=== PATIENT | male | born 1990 | race Caucasian/White ===

== ENCOUNTER 2022-01-20 19:11 | Inpatient (IN) | payer MEDICAID, SELFPAY ==
[2022-01-20 19:13] VITALS: BP 115/80; PULSE 100; RESP 18; TEMP 36.6; O2SAT 98; BMI 29.2
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
[2022-01-20 19:34] LABS: Basophils # 0.1 10^3/uL (0.0-0.1); Basophils % 0.5 %; Eosinophils # 0.1 10^3/uL (0.0-0.8); Eosinophils % 0.9 %; Hemoglobin 14.7 g/dL (11.7-16.6); Lymphocytes # 3.8 10^3/uL (0.8-4.8); Lymphocytes % 38.3 %; Mean Corpuscular HGB Conc 32.7 g/dL (30.0-36.0); Mean Corpuscular Hemoglobin 30.1 pg (28.0-34.0); Mean Corpuscular Volume 92.2 fl (80-94); Mean Platelet Volume 11.9 fL (7.4-10.4); Monocytes # 0.8 10^3/uL (0.2-0.9); Monocytes % 8.2 %; Neutrophils # 5.19 10^3/uL (1.8-7.7); Neutrophils % 51.8 %; Nucleated Red Blood Cells % 0 %; Platelet Count 220 10^3/cmm (130-400); Red Blood Count 4.88 10^6/uL (4.1-5.3); Red Cell Distribution Width 14.1 % (12.1-15.1)
[2022-01-20 19:46] LABS: Amphetamines Screen Urine Positive (Negative); Barbiturates Screen Urine Negative (Negative); Benzodiazepines Screen Urine Negative (Negative); Cocaine Screen Urine Negative (Negative); Opiate Screen Urine Negative (Negative); PCP Screen Urine Negative (Negative); THC Screen Urine Negative (Negative)
[2022-01-20 19:51] LABS: Alanine Aminotransferase 43 U/L (0-41); Albumin Level 4.5 g/dL (3.5-5.2); Alkaline Phosphatase 67 IU/L (40-130); Anion Gap 18.9 (5-19); Aspartate Amino Transferase 35 U/L (0-40); Blood Urea Nitrogen 12 mg/dL (6-20); Calcium 8.6 mg/dL (8.5-10.5); Carbon Dioxide 22 mmol/L (22-29); Chloride 100 mmol/L (98-107); Globulin 2.9 g/dL (1.3-4.6); Glomerular Filtration Rate 114.3 mL/min (90-130); Glucose 98 mg/dL (65-115); Lipase 62 U/L (13-60); Osmolality Calculated 284 mOsm/kg (285-295); Potassium 3.9 mmol/L (3.5-5.1); Sodium 137 mmol/L (136-145); Total Bilirubin 0.2 mg/dL (0.15-1.2); Total Protein 7.4 g/dL (6.6-8.7)
[2022-01-20 19:52] LABS: Acetaminophen < 5.0 ug/mL (10-30); Salicylate < 0.3 mg/dL (3-10)
[2022-01-20 20:39] VITALS: BP 127/76; PULSE 111; RESP 17; TEMP 36.8; O2SAT 97
[2022-01-20 20:55] VITALS: BP 127/76; PULSE 111; RESP 17; TEMP 36.8; O2SAT 97
[2022-01-20] MEDS: mirtazapine 30 mg Tablet PO (21:51)
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
[2022-01-21 06:00] VITALS: BP 154/95; PULSE 88; RESP 17; TEMP 36.6; O2SAT 99
[2022-01-21] MEDS: OLANZapine 5 mg ODT PO ×2 (08:12→12:17)
[2022-01-21] MEDS: carvedilol 6.25 mg Tablet 3.125 MG PO ×2 (08:12→17:45)
[2022-01-21] MEDS: OXcarbazepine 300 mg Tablet 450 MG PO ×2 (08:12→17:44)
[2022-01-21] MEDS: nicotine 2 mg Gum BUCCAL ×2 (09:28→12:17)
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
[2022-01-21] MEDS: haloperidol 5 mg Tablet PO (13:00)
--- NOTE | 2022-01-21 13:02 | PC.NURSE ---
Haldol 5mg po given for increased agitation as evidenced by patient yelling at other patients, fist clenched pacing and yelling at this RN regarding clarification of coumadin order and physician. Patient states he has a mechanical aortic valve replacement.
[2022-01-21] MEDS: haloperidol inj 5 mg/mL INJ 1 mL IM (13:39)
[2022-01-21] MEDS: diphenhydrAMINE 50 mg/mL SDV 1mL IM (13:40)
[2022-01-21] MEDS: LORazepam 2 mg/mL INJ 1 mL IM (13:40)
--- NOTE | 2022-01-21 13:55 | PC.NURSE ---
Patient with increased agitation and anxiety Staff increased presence with silent observation and verbal descalation. Patient request for anxiety medication to be given. Patient given Ativan 2 mg IM, Haldol 5 mg IM given in right deltoid and Benadryl 25 mg IM given in left deltoid. Patient tolerated well. Patient moved to room 170.
--- NOTE | 2022-01-21 17:43 | PC.NURSE ---
Earlier this shift attempted to verify warfarin dose with [facility] in [place]. Last Warfarin was filled in May 2021. Dr. HARRELL was the prescribing physician. Called [facility] and [facility] with no record of Dr. HARRELL. Patient reports that he has a mechanical aortic valve. Patient became upset with this nurse when attempting to verify pharmacy and physician. Pharmacy and physician aware.
[2022-01-21] MEDS: lurasidone 20 mg Tablet 40 MG PO (17:44)
[2022-01-21 17:59] LABS: INR 1.04 (0.8-1.2)
[2022-01-21] MEDS: warfarin 10 mg Tablet PO (18:32)
[2022-01-21] MEDS: mirtazapine 30 mg Tablet PO (21:18)
[2022-01-21 22:00] VITALS: RESP 16
[2022-01-22 06:00] VITALS: BP 126/84; PULSE 88; RESP 18; TEMP 36.4; O2SAT 99
[2022-01-22] MEDS: OXcarbazepine 300 mg Tablet 450 MG PO ×2 (09:03→21:18)
[2022-01-22] MEDS: carvedilol 6.25 mg Tablet 3.125 MG PO ×2 (09:03→21:18)
[2022-01-22] MEDS: nicotine 2 mg Gum BUCCAL (09:05)
[2022-01-22] MEDS: haloperidol inj 5 mg/mL INJ 1 mL IM (09:52)
[2022-01-22] MEDS: LORazepam 2 mg/mL INJ 1 mL IM (09:52)
[2022-01-22] MEDS: diphenhydrAMINE 50 mg/mL SDV 1mL IM (09:52)
--- NOTE | 2022-01-22 09:55 | PC.NURSE ---
PRN BENADRYL, ATIVAN, HALDOL BENADRYL 50 MG GIVEN IM IN RIGHT DELTOID PER PT C/O AGITATION. ATIVAN 2 MG GIVEN IM WITH HALDOL 5 MG IM IN LEFT DELTOID PER PT C/O AGITATION/ANXIETY. PT UP PACING UNIT, YELLING AND CURSING ABOUT NOT BEING ABLE TO DISCHARGE TODAY. PT TOOK IM MEDICATIONS WITHOUT INCIDENT.
[2022-01-22 11:11] LABS: INR 1.07 (0.8-1.2)
--- NOTE | 2022-01-22 13:56 | W.PM.NPUPNS ---
Subjective NPU Subjective: He was quite loud and belligerent this morning. He was yelling about being a voluntary patient and insisting on leaving. He required B-52 injection. He was able to calm down after that and go to sleep. Mental Status Exam MSE Comments: This is a 31-year-old overweight male who appears his approximately stated age and is in no acute distress at the beginning of the conversation.? He was seen in the hallway and in his room as he was yelling and insisting on leaving immediately. He was threatening. psychomotor activity was increased Speech is at a regular rate and rhythm, normal volume, good articulation, not pressured initially.? At the end he had some pressured speech and increased volume and rate. Alert, oriented X3 Attention and concentration appear to be normal. Memory is intact Mood is irritated.? Affect is quite angry Thought process is logical and goal-directed. Thought content:? Denies auditory and visual hallucinations.? He is obviously delusional about people talking about him and got quite upset about it after he thought about it.? ? No current suicidal ideation, and no homicidal ideation.? Fund of knowledge is average. Insight and judgment appear to be poor. Impulse control is very poor. Vitals/I&O/Wt Last Vital Signs Temp 97.5 F L 01/22/22 06:00 Pulse 88 01/22/22 06:00 Resp 18 01/22/22 06:00 BP 126/84 01/22/22 06:00 Pulse Ox 99 01/22/22 06:00 Weight last 48 hrs Weight 95.254 kg Data NPU : 01/20/22 19:20 01/20/22 19:20 A&P Assessment and plan (1) Methamphetamine abuse: Status: Acute (2) Bipolar 1 disorder, manic, moderate: Status: Acute (3) Depression with suicidal ideation: Status: Acute (4) Suicide attempt: Status: Acute Plan This is a 31-year-old male with a diagnosis of bipolar disorder, schizophrenia and antisocial personality disorder who reports suicidal ideation with intoxication with alcohol and 3 hospitalizations in 10 days since his fianc?e broke up with him. Plan: 1.? Continue current medication.? Remeron 30 mg daily and Trileptal 450 mg twice a day.? We will increase Latuda to 40 mg daily 2.? Continue every 15 minute checks for safety. 3.? Encourage individual, group and milieu therapies. 4.? Encourage sober living treatment after discharge at the highest level of care to which he is willing to commit. 5.? We will monitor for safety for himself in the community prior to discharge. Involuntary Hold Information 96 Hour Hold: 96 Hour Involuntary Admission: Yes 96 Hour Hold Ending Date: 01/24/22 96 Hour Hold Ending Time: 20:00 Attestations NPU Medical Necessity Statement*: Inpatient hospitalization is medically necessary and the clinically appropriate intervention at this time. We will initiate medications and make changes as indicated. Coding Level of Care Code Acute Sewing Machine Mechanic for g Fwd Diagnoses Methamphetamine abuse F15.10 Bipolar 1 disorder, manic, moderate F31.12 Depression with suicidal ideation F32.A; R45.851 Suicide attempt T14.91XA
[2022-01-22 14:00] VITALS: BP 120/83; PULSE 115; RESP 20; TEMP 37; O2SAT 98
[2022-01-22] MEDS: warfarin 10 mg Tablet PO (14:01)
--- NOTE | 2022-01-22 14:56 | PC.SOCIAL ---
Patient did not attend group.
[2022-01-22] MEDS: lurasidone 20 mg Tablet 40 MG PO (16:30)
[2022-01-22 20:45] VITALS: BP 114/73; PULSE 77; RESP 18; TEMP 36.8; O2SAT 98
[2022-01-22] MEDS: mirtazapine 30 mg Tablet PO (21:17)
[2022-01-23 06:00] VITALS: BP 121/75; PULSE 82; RESP 18; TEMP 36.4; O2SAT 99
[2022-01-23] MEDS: OXcarbazepine 300 mg Tablet 450 MG PO ×2 (07:50→22:04)
[2022-01-23] MEDS: carvedilol 6.25 mg Tablet 3.125 MG PO ×2 (07:51→22:04)
[2022-01-23 07:58] LABS: INR 1.19 (0.8-1.2)
--- NOTE | 2022-01-23 10:42 | PC.NURSE ---
Denies SI/HI and AVH at this time. Denies pain. States he had a bad moment when he first came in and was drinking too much but he is ready to leave and have a future. States, I know I messed up, I just want another chance to do better.
[2022-01-23] MEDS: nicotine 2 mg Gum BUCCAL ×2 (11:38→15:25)
[2022-01-23] MEDS: hyDROXYzine 25 mg Capsule 50 MG PO (12:15)
--- NOTE | 2022-01-23 12:15 | PC.NURSE ---
PRN VISTARIL 50 MG GIVEN PO PER PT C/O STATED ANXIETY
[2022-01-23] MEDS: OLANZapine 5 mg ODT PO (13:48)
[2022-01-23] MEDS: warfarin 10 mg Tablet PO (13:48)
--- NOTE | 2022-01-23 13:49 | PC.NURSE ---
PRN ZYPREXA ZYDIS 5 MG GIVEN PO PER PT C/O FURTHER ANXIETY/AGITATION.
[2022-01-23 14:00] VITALS: BP 129/84; PULSE 101; RESP 20; TEMP 36.4; O2SAT 97
[2022-01-23] MEDS: lurasidone 20 mg Tablet 40 MG PO (16:57)
--- NOTE | 2022-01-23 17:59 | W.PM.NPUPNS ---
Subjective NPU Subjective: Patient presents today appearing somewhat lethargic but reporting that the changes that he and Dr. Thomas instituted appear to be helpful. He had no explanation for his outburst the day before the required Haldol and Ativan to help him get under control. We agreed to have a discussion in the morning about whether he needs more time in the hospital or not and whether that needs to be a 21-day hold whether him signing himself into the hospital is a viable option. Mental Status Exam MSE Comments: This is an overweight versus obese white male with limited dress, grooming and eye contact. He has significant loose skin suggesting significant weight loss. No abnormal movements except for psychomotor retardation. Cooperative with exam in no acute distress. Speech was decreased rate and normal volume. Mood described as better, affect slightly subdued. Thought process organized. Thought contact: patient denies suicidal or homicidal ideation, there were no delusions reported or noted, patient denied auditory or visual hallucinations. Attention and concentration appeared intact and memory appeared reliable but none were formally tested. Patient is alert and oriented times three. Insight and judgment appear limited and impulse control appears limited. Vitals/I&O/Wt Last Vital Signs Temp 97.5 F L 01/23/22 14:00 Pulse 101 H 01/23/22 14:00 Resp 20 H 01/23/22 14:00 BP 129/84 01/23/22 14:00 Pulse Ox 97 01/23/22 14:00 Data NPU : 01/20/22 19:20 01/20/22 19:20 A&P Assessment and plan (1) Methamphetamine abuse: Status: Acute (2) Bipolar 1 disorder, manic, moderate: Status: Acute (3) Depression with suicidal ideation: Status: Acute (4) Suicide attempt: Status: Acute Plan This is a 31-year-old male with a diagnosis of bipolar disorder, schizophrenia and antisocial personality disorder who reports suicidal ideation with intoxication with alcohol and 3 hospitalizations in 10 days since his fianc?e broke up with him. Plan: 1.? Continue current medication.? Remeron 30 mg daily and Trileptal 450 mg twice a day.? We increased Latuda to 40 mg daily 2.? Continue every 15 minute checks for safety. 3.? Encourage individual, group and milieu therapies. 4.? Encourage sober living treatment after discharge at the highest level of care to which he is willing to commit. 5.? We will make decisions first thing in the morning about continued stay and possible 21-day hold. Involuntary Hold Information 96 Hour Hold: 96 Hour Involuntary Admission: Yes 96 Hour Hold Ending Date: 01/24/22 96 Hour Hold Ending Time: 20:00 Attestations NPU Medical Necessity Statement*: Inpatient hospitalization is medically necessary and the clinically appropriate intervention at this time.? We will initiate medications and make changes as indicated. Likely length of stay 2 to 4 days. Coding Level of Care Code Acute Detective Private Eye for g Fwd Diagnoses Methamphetamine abuse F15.10 Bipolar 1 disorder, manic, moderate F31.12 Depression with suicidal ideation F32.A; R45.851 Suicide attempt T14.91XA
[2022-01-23 21:20] VITALS: BP 83/49; PULSE 77; RESP 17; TEMP 36.6; O2SAT 97
[2022-01-23] MEDS: mirtazapine 30 mg Tablet PO (22:04)
[2022-01-24 06:00] VITALS: BP 109/69; PULSE 65; RESP 17; TEMP 36.6; O2SAT 97
[2022-01-24 07:52] LABS: INR 1.35 (0.8-1.2)
[2022-01-24] MEDS: carvedilol 6.25 mg Tablet 3.125 MG PO (08:53)
[2022-01-24] MEDS: OXcarbazepine 300 mg Tablet 450 MG PO (08:53)
[2022-01-24] MEDS: nicotine 2 mg Gum BUCCAL ×2 (08:53→10:49)
--- NOTE | 2022-01-24 12:40 | P.NPUDS_ITS ---
Diagnoses at Discharge Discharge Diagnosis (1) Methamphetamine abuse: Status: Acute (2) Bipolar 1 disorder, manic, moderate: Status: Acute (3) Depression with suicidal ideation: Status: Acute (4) Suicide attempt: Status: Acute Reason for Visit Reason for Visit: PSYCH EVAL Brief History: History of Present Illness JOSE ASHRAF is a 31 year old male admitted through our emergency department with the following report: HPI: [30]yo patient w/ no past medical history presenting to the emergency room with suicidal ideation with plan.? Patient was attempting to jump in front of a car and be hit.? Patient tells me that he recently broke up with his girlfriend has no family. On arrival, the patient is AAOx3 and cooperative with my evaluation. No focal complaints of chest pain, shortness of breath, palpitations, N/V, focal GI/ complaints. Currently denies HI. No complaints of hallucinations. He says that he was just suicidal yesterday because he was intoxicated.? This is his third hospitalization in 10 days.? He says that he has been on the Remeron 30 mg and Trileptal 450 mg twice a day since June.? The Trileptal was increased to this dose about 2 months ago. The Latuda 20 mg was added at 1 of these recent hospitalizations.? He thinks it might be helping.? He says that the Remeron helps his sleep and the Trileptal does help regulate his mood.? He says without that he will have weeks when he is up and weeks when he is down.? He always has some paranoia and thinks people are talking about him when they really are not.? He says that he can tell the difference between when and they are really talking about him and when they are not.? He has been dating a girl for about 18 months.? She broke up with him about 10 days ago.? That is the reason for his most recent stress.? Sometimes he thinks that she is spreading rumors about him.? He says that other people say that he is spreading rumors about them.? He uses methamphetamine on a regular basis but does not think that it has caused him to be psychotic previously.? He is not interested in rehabilitation.? He says the last time he used was about 10 days ago.? He has been in [place] [facility] times.? Once for assault, once for possession and twice for burglary.? He has some charges that are pending.? He said that his previous diagnoses have been antisocial personality disorder, paranoid schizophrenia and bipolar disorder.? He has been on other antipsychotics but they never really santoro ve helped the paranoia.? I named Seroquel, Abilify and risperidone and he said he had been on all of those.? This is the first time he has been on Latuda.? He says that he has attempted suicide twice before.? Once by cutting his wrist about 18 months ago.? He did not require sutures.? The other time he tried to jump in front of cars along the highway. PAST PSYCHIATRIC HISTORY As above SOCIAL HISTORY As above Hospital Course Hospital Course He slowly acclimated to the individual, group and milieu therapies provided. He required multiple as needed interventions with IM injections during the hospitalization. He did not need any on the last 2 days of hospitalization. He showed marked improvement as his Latuda was increased, and Trileptal and Remeron were added and monitored. He was able to contract for safety outside the hospital prior to discharge. During the hospitalization, patient had routine laboratory studies which were within normal limits except for few outliers. Additionally there was a general medical evaluation which was also within normal limits and revealed no new acute processes. Discharge Summary: At the time of discharge, he denied psychosis or lethality. Mood and anxiety were well managed. Patient endorsed a plan to avoid all drugs of abuse and follow-up with the aftercare recommendations of the treatment team. Patient was evaluated and deemed to be absent credible lethality, and had achieved the maximum benefit from an inpatient hospitalization, so was discharged. Involuntary Hold Information 96 Hour Hold: 96 Hour Involuntary Admission: Yes 96 Hour Hold Ending Date: 01/24/22 96 Hour Hold Ending Time: 20:00 Mental Status Exam MSE Comments: This is an overweight versus obese white male with limited dress, grooming and eye contact.? He has significant loose skin suggesting significant weight loss.? No abnormal movements except for resolving mild psychomotor retardation. Cooperative with exam in no acute distress. Speech was more normal rate and normal volume. Mood described as better, affect slightly subdued. Thought process organized. Thought contact: patient denies suicidal or homicidal ideation, there were no delusions reported or noted, patient denied auditory or visual hallucinations. Attention and concentration appeared intact and memory appeared reliable but none were formally tested. Patient is alert and oriented times three. Insight and judgment appear limited and impulse control appears limited. Discharge Data Studies Completed and Pending: Laboratory Results WBC 10.0 10^3/uL (4.0 -10.0) 01/20/22 19:20 RBC 4.88 10^6/uL (4.1 -5.3) 01/20/22 19:20 Hgb 14.7 g/dL (11.7-1 6.6) 01/20/22 19:20 Hct 45.0 % (42.0-52.0 ) 01/20/22 19:20 MCV 92.2 fl (80-94) 01/20/22 19:20 MCH 30.1 pg (28.0-34. 0) 01/20/22 19: MCHC 32.7 g/dL (30.0-3 6.0) 01/20/22 19:20 RDW 14.1 % (12.1-15.1 ) 01/20/22:20 Plt Count 220 10^3/cmm (130 -400) 01/20/22 19:20 MPV 11.9 fL (7.4-10.4 ) H 01/20/22 19:20 Neut % (Auto) 51.8 % 01/20/22 19:20 Lymph % (Auto) 38.3 % 01/20/22 19:20 [place] % (Auto) 8.2 % 01/20/22 19:20 Eos % (Auto) 0.9 % 01/20/22 19:20 Baso % (Auto) 0.5 % 01/20/22 19:20 Neut # (Auto) 5.19 10^3/uL (1.8 -7.7) 01/20/22 19:20 Lymph # (Auto) 3.8 10^3/uL (0.8- 4.8) 01/20/22 19:20 [place] # (Auto) 0.8 10^3/uL (0.2- 0.9) 01/20/22 19:20 Eos # (Auto) 0.1 10^3/uL (0.0- 0.8) 01/20/22 19:20 Baso # (Auto) 0.1 10^3/uL (0.0- 0.1) 01/20/22 19:20 Nucleated RBC % (a uto) 0 % 01/20/22 19:20 Nucleated RBCs # 0.0 /100WBC 01/20/22 19:20 PT 17.00 SECONDS (12 .1-14.9) H 01/24/22 07:10 INR 1.35 (0.8-1.2) H 01/24/22 07:10 Sodium 137 mmol/L (136-1 45) 01/20/22 19:20 Potassium 3.9 mmol/L (3.5-5 .1) 01/20/22 19:20 Chloride 100 mmol/L (98-10 7) 01/20/22 19:20 Carbon Dioxide 22 mmol/L (22-29) 01/20/22 19:20 Anion Gap 18.9 (5-19) 01/20/22 19:20 BUN 12 mg/dL (6-20) 01/20/22 19:20 Creatinine 0.8 mg/dL (0.7-1. 2) 01/20/22 19:20 GFR Calculation 114.3 mL/min (90- 130) 01/20/22 19:20 Glucose 98 mg/dL (65-115) 01/20/22 19:20 Calculated Osmolal ity 284 mOsm/kg (285- 295) L 01/20/22 19:20 Calcium 8.6 mg/dL (8.5-10 .5) 01/20/22 19:20 Total Bilirubin 0.2 mg/dL (0.15-1 .2) 01/20/22 19:20 AST 35 U/L (0-40) 01/20/22 19:20 ALT 43 U/L (0-41) H 01/20/22 19:20 Alkaline Phosphata se 67 IU/L (40-130) 01/20/22 19:20 Total Protein 7.4 g/dL (6.6-8.7 ) 01/20/22 19:20 Albumin 4.5 g/dL (3.5-5.2 ) 01/20/22 19:20 Globulin 2.9 g/dL (1.3-4.6 ) 01/20/22 19:20 Lipase 62 U/L (13-60) H 01/20/22 19:20 Salicylates < 0.3 mg/dL (3-10 ) L 01/20/22 19:20 Urine Opiates Scre en Negative ng/mL (N egative) 01/20/22 19:20 Acetaminophen < 5.0 ug/mL (10-3 0) L 01/20/22 19:20 Ur Barbiturates Sc reen Negative ng/mL (N egative) 01/20/22 19:20 Ur Phencyclidine S crn Negative ng/mL (N egative) 01/20/22 19:20 Ur Amphetamines Sc reen Positive ng/mL (N egative) H 01/20/22 19:20 U Benzodiazepines Scrn Negative ng/mL (N egative) 01/20/22 19:20 Urine Cocaine Scre en Negative ng/mL (N egative) 01/20/22 19:20 U Marijuana (THC) Screen Negative ng/mL (N egative) 01/20/22 19:20 Vitals: Last Vital Signs Temp 98 F 01/24/22 13:10 Pulse 65 01/24/22 13:10 Resp 17 01/24/22 13:10 BP 109/69 01/24/22 13:10 Pulse Ox 97 01/24/22 13:10 Discharge Plan Discharge Patient Disposition: Home Condition: Stable Prescriptions: New mirtazapine 30 mg Tablet 30 mg PO BEDTIME 30 Days Qty: 30 1RF Latuda 20 mg Tablet 40 mg PO 1700 30 Days Qty: 60 1RF warfarin 10 mg Tablet 10 mg PO DAILY@1400 30 Days Qty: 30 1RF Continued Trileptal 150 mg Tablet 150 mg PO BID 30 Days Qty: 60 1RF Trileptal 300 mg Tablet 300 mg PO BID 30 Days Qty: 60 1RF Coreg 3.125 mg Tablet 3.125 mg PO BID 30 Days Qty: 60 1RF Rx Instructions: must administer with a meal/food Remeron 30 mg Tablet 30 mg PO BEDTIME 30 Days Qty: 30 1RF lisinopril 5 mg Tablet 5 mg PO DAILY 30 Days Qty: 30 1RF Discontinued Latuda 20 mg Tablet 20 mg PO DAILY 0RF Rx Instructions: must administer with food (at least 350 calories) warfarin 10 mg Tablet 13 mg PO DAILY 0RF Discharge Orders: Discharge Order (Routine); Ordered 01/24/22 Ordered By: Horacio Horner Referrals: [facility] [Other] - 4-7 days (Walk in for initial assessment Thursday- Thursday 8am to 4pm) Discharge Diet: Regular Discharge Activity: Resume usual activity Patient Instructions: Opioid Safety Discharge Attestations NPU Time Spent in Discharge Care*: less than 30 min Specific Discharge Activities: Specific discharge activities: educating patient, discussing with wrapper caser/social workers/dc planners, documenting/other paperwork and evaluating patient/reviewing data Coding Level of Care Code Acute Chg DC note Diagnoses Methamphetamine abuse F15.10 Bipolar 1 disorder, manic, moderate F31.12 Depression with suicidal ideation F32.A; R45.851 Suicide attempt T14.91XA
[2022-01-24 13:10] VITALS: BP 109/69; PULSE 65; RESP 17; TEMP 36.6; O2SAT 97
== END 2022-01-24 13:42 | disposition home or self-care (01) | DRG 885 ==
LOC: ER 19:44 → NP 20:17
PROVIDERS: Admitting Provider Psychiatry & Neurology Psychiatry; Emergency Provider Emergency Medicine; Visit Provider Psychiatry & Neurology Psychiatry
DX: F31.12 Bipolar disorder, current episode manic without psychotic features, moderate (principal); R45.851 Suicidal ideations; F20.9 Schizophrenia, unspecified; F60.2 Antisocial personality disorder; F15.10 Other stimulant abuse, uncomplicated; Z91.51 Personal history of suicidal behavior
CPT/HCPCS: 36415; 80053; 80306; 80307; 83690; 85025; 85610; 96372; 97150; 97165; 99285; J1200; J1630; J2060

== ENCOUNTER 2022-03-08 22:36 | Inpatient (IN) | payer MEDICAID, SELFPAY ==
[2022-03-08 23:18] VITALS: BP 123/90; PULSE 94; RESP 18; TEMP 36.9; O2SAT 96
[2022-03-08 23:40] VITALS: BMI 33.0
[2022-03-08] MEDS: mirtazapine 30 mg Tablet PO (23:40)
--- NOTE | 2022-03-09 01:18 | NUR.SHIFT ---
Patient has had two open heart surgeries. He has a mechanical heart valve. Heart sounds are a swishing sound indecative of regurgitation.
--- NOTE | 2022-03-09 01:57 | PC.ADMIT ---
Admission Note: Patient is a 31 year old male who presented to [facility] via private vehicle with a chief complaint of suicidal thoughts with a plan. Patient reported that he has been without medications for the past three weeks due to the inability to afford them. Per the patient, ?I?m in a deep depression with increased anxiety right now. I ain?t got a job or a place to live. Patient has really been thinking about going to the highway and jumping in front of a diesel.? At the ED the patient appeared paranoid and was moving non-stop during assessment. He admits to auditory and visual hallucinations. He was positive for Meth and THC. Patient?s history includes 2 open heart surgeries with a mechanical heart valve. Patient arrived by EMS as a direct admit to [facility]. The patient,Santosh Resendez,31 y/o, was given written information regarding hospital policies, unit procedures and contact persons. Patient's smoking status: never smoked. Vital Signs - 8 hr 03/08/22 23:18 Temperature 98.4 F Pulse Rate 94 Respiratory Rate 18 Blood Pressure 123/90 Pulse Oximetry 96
[2022-03-09 06:00] VITALS: BP 124/84; PULSE 101; RESP 18; TEMP 36.4; O2SAT 99
--- NOTE | 2022-03-09 08:04 | P.NPUHP_ITS ---
Providers/Chief Complaint Admitting Physician: Rogers Thomas MD Chief Complaint: SI HPI NPU History of Present Illness Santosh Resendez is a 31 year old male admitted through an outside emergency department with the following report: Presenting problem: The patient presented to the emergency department via private vehicle with a chief complaint of suicidal thoughts with a plan.? The patient reported that to the triage nurse that he has been without medication for the past 3 weeks because he could not afford them.? He appeared paranoid in triage.? Per patient I am in deep depression right now and I have been having a lot of anxiety lately.? I ain't got no job or a place to live.? I ain't got no family or nothing right now.? I ain't been able to afford my medication.? I re ally been thinking about going on the highway and jumping in front of a diesel.? Patient is moving throughout the assessment and was looking around the room under the stretcher and [place] in the room.? He was cooperative and friendly but paranoid and moving nonstop during the assessment.? He admits to auditory or visual hallucinations. He was admitted to the neuropsychiatry unit for definitive treatment of these issues. He said that he was not able to afford his medications when his 1 month supply ran out after his last admission. He was discharged on Latuda 40 mg, Remeron 30 mg, Trileptal 450 mg twice daily, lisinopril 5 mg every morning Coreg 3.125 mg twice daily and warfarin 10 mg daily. He said that he was doing relatively well with those doses of medications. He did significantly worse when he ran out of them. He says that he and his father went into rehab together in early February when he was still taking the medications. He said it was too much for him and he was very anxious around the other people and he had to leave. He would like to go back there when he leaves here. His father is still there. He has been having auditory and visual hallucinations. He has been paranoid. He has had suicidal ideations and thinking about running out in in traffic so that he can be killed. He has been using methamphetamine and has not slept for the last 6 days. Discharge Diagnosis (1) Methamphetamine abuse: ?Status:?Acute (2) Bipolar 1 disorder, manic, moderate: ?Status:?Acute (3) Depression with suicidal ideation: ?Status:?Acute (4) Suicide attempt: ?Status:?Acute History of Present Illness JOSE RESENDEZ is a 31 year old male admitted through our emergency department with the following report: HPI: [30]yo patient w/ no past medical history presenting to the emergency room with suicidal ideation with plan.? Patient was attempting to jump in front of a car and be hit.? Patient tells me that he recently broke up with his girlfriend has no family. On arrival, the patient is AAOx3 and cooperative with my evaluation. No focal complaints of chest pain, shortness of breath, palpitations, N/V, focal GI/ complaints. Currently denies HI. No complaints of hallucinations. He says that he was just suicidal yesterday because he was intoxicated.? This is his third hospitalization in 10 days.? He says that he has been on the Remeron 30 mg and Trileptal 450 mg twice a day since June.? The Trileptal was increased to this dose about 2 months ago. The Latuda 20 mg was added at 1 of these recent hospitalizations.? He thinks it might be helping.? He says that the Remeron helps his sleep and the Trileptal does help regulate his mood.? He says without that he will have weeks when he is up and weeks when he is down.? He always has some paranoia and thinks people are talking about him when they really are not.? He says that he can tell the difference between when and they are really talking about him and when they are not.? He has been dating a girl for about 18 months.? She broke up with him about 10 days ago.? That is the reason for his most recent stress.? Sometimes he thinks that she is spreading rumors about him.? He says that other people say that he is spreading rumors about them.? He uses methamphetamine on a regular basis but does not think that it has caused him to be psychotic previously.? He is not interested in rehabilitation.? He says the last time he used was about 10 days ago.? He has been in [place] [facility].? Once for assault, once for possession and twice for burglary.? He has some charges that are pending.? He said that his previous diagnoses have been antisocial personality disorder, paranoid schizophrenia and bipolar disorder.? He has been on other antipsychotics but they never really have helped the paranoia.? I named Seroquel, Abilify and risperidone and he said he had been on all of those.? This is the first time he has been on Latuda.? He says that he has attempted suicide twice before.? Once by cutting his wrist about 18 months ago.? He did not require sutures.? The other time he tried to jump in front of cars along the highway. ? Hospital Course He slowly acclimated to the individual, group and milieu therapies provided.? He required multiple as needed interventions with IM injections during the hospitalization.? He did not need any on the last 2 days of hospitalization.? He showed marked improvement as his Latuda was increased, and Trileptal and Remeron were added and monitored.? He was able to contract for safety outside the hospital prior to discharge.? During the hospitalization, patient had routine laboratory studies which were within normal limits except for few outliers.? Additionally there was a general medical evaluation which was also within normal limits and revealed no new acute processes. Discharge Summary: At the time of discharge, he denied psychosis or lethality.? Mood and anxiety were well managed.? Patient endorsed a plan to avoid all drugs of abuse and follow-up with the aftercare recommendations of the treatment team.? Patient was evaluated and deemed to be absent credible lethality, and had achieved the maximum benefit from an inpatient hospitalization, so was discharged. . Prescriptions: New ? mirtazapine 30 mg Tablet ?? 30 mg PO BEDTIME 30 Days Qty: 30 1RF ? Latuda 20 mg Tablet ?? 40 mg PO 1700 30 Days Qty: 60 1RF ? warfarin 10 mg Tablet ?? 10 mg PO DAILY@1400 30 Days Qty: 30 1RF Continued ? Trileptal 150 mg Tablet ?? 150 mg PO BID 30 Days Qty: 60 1RF ? Trileptal 300 mg Tablet ?? 300 mg PO BID 30 Days Qty: 60 1RF ? Coreg 3.125 mg Tablet ?? 3.125 mg PO BID 30 Days Qty: 60 1RF ?? Rx Instructions: ?? must administer with a meal/food ? Remeron 30 mg Tablet ?? 30 mg PO BEDTIME 30 Days Qty: 30 1RF ? lisinopril 5 mg Tablet ?? 5 mg PO DAILY 30 Days Qty: 30 1RF Meds NPU Home Medications Medication Instructions Recorded Confirmed Last Taken Type carvedilol 3.125 mg tablet (Coreg) 3.125 mg PO BID 30 Days #60 tab 01/24/22 03/08/22 Unknown Rx lisinopril 5 mg tablet 5 mg PO DAILY 30 Days #30 tab 01/24/22 03/08/22 Unknown Rx mirtazapine 30 mg tablet 30 mg PO BEDTIME 30 Days #30 tab 01/24/22 03/08/22 Unknown Rx oxcarbazepine 150 mg tablet 150 mg PO BID 30 Days #60 tab 01/24/22 03/08/22 Unknown Rx (Trileptal) oxcarbazepine 300 mg tablet 300 mg PO BID 30 Days #60 tab 01/24/22 03/08/22 Unknown Rx (Trileptal) lurasidone 20 mg tablet (Latuda) 40 mg PO DAILY 03/08/22 03/08/22 Unknown History warfarin 10 mg tablet 12 mg PO DAILY 03/08/22 03/08/22 Unknown History Allergies Allergy/AdvReac Type Severity Reaction Status Date / Time No Known Allergies Allergy Verified 01/20/22 19:14 [facility] PFS: Medical History (Updated 01/21/22 @ 10:18 by Rogers Thomas MD) No pertinent past medical history Social History (Updated 01/20/22 @ 19:16 by Darion Ch MD) Smoking and tobacco status: never smoked Alcohol intake: never Mental Status Exam MSE Comments: This is a 31-year-old obese male who appears approximately his stated age and is in no acute distress. He is fairly groomed and dressed in hospital scrubs. He is pleasant and cooperative with the evaluation. He is very sleepy and fell asleep a couple of times during our conversation despite sitting up. psychomotor activity mildly decreased Speech is at a regular rate and rhythm, normal volume, good articulation, not pressured. There is no spontaneous speech but he only answered questions. Alert, oriented X3 Attention and concentration appear to be somewhat reduced because of his sed ation. Memory is intact Mood is depressed. Affect is subdued because he is so sleepy. Thought process is logical and goal-directed. Thought content: He admits to auditory and visual hallucinations. No delusions or paranoia are noted. He denies current suicidal ideation but admits that he was suicidal recently. He denies homicidal ideation. Fund of knowledge is average. Insight and judgment appear to be poor. Impulse control is poor. Vitals/I&O/Wt Last Vital Signs Temp 97.6 F 03/09/22 06:00 Pulse 101 H 03/09/22 06:00 Resp 18 03/09/22 06:00 BP 124/84 03/09/22 06:00 Pulse Ox 99 03/09/22 06:00 Weight last 48 hrs Weight 104.383 kg A&P Assessment and plan (1) Methamphetamine abuse: Status: Acute (2) Bipolar 1 disorder, manic, moderate: Status: Acute (3) Depression with suicidal ideation: Status: Acute Plan This is a 31-year-old male who reports worsening psychosis and depression after running out of medications 3 weeks ago. Plan: 1. Will resume medications that he was taking when he was released in the last admission. 2. Continue every 15 minute checks for safety. 3. Encourage individual, group and milieu therapies. 4. Encourage sober living treatment after discharge at the highest level of care to which he is willing to commit. 5. We will monitor for safety for himself in the community prior to discharge. Involuntary Hold Information 96 Hour Hold: 96 Hour Involuntary Admission: No Attestations NPU Medical Necessity Statement*: Inpatient hospitalization is medically necessary and the clinically appropriate intervention at this time. We will initiate medications and make changes as indicated. He will be in the hospital for over 2 midnights. Likely length of stay 4-6 days Coding Level of Care Code Acute Wet Process Miller Head Assistant for Alicia Fwd Diagnoses Methamphetamine abuse F15.10 Bipolar 1 disorder, manic, moderate F31.12 Depression with suicidal ideation F32.A; R45.855
[2022-03-09 08:12] LABS: INR 0.98 (0.8-1.2)
[2022-03-09] MEDS: OXcarbazepine 300 mg Tablet 450 MG PO ×2 (08:49→21:03)
[2022-03-09] MEDS: lisinopril 5 mg Tablet PO (08:49)
[2022-03-09] MEDS: lurasidone 20 mg Tablet 40 MG PO (08:50)
[2022-03-09] MEDS: OLANZapine 5 mg ODT PO (08:50)
--- NOTE | 2022-03-09 11:03 | PC.NURSE ---
PRN MEDICATION TO NURSES STATION REQUESTING ANXIETY MEDICATIONS. VISIBLY ANXIOUS AND AGITATED. ZYDIS 5 MG GIVEN ORDERED.
[2022-03-09 14:00] VITALS: BP 125/79; PULSE 86; RESP 18; TEMP 36.6; O2SAT 97
[2022-03-09] MEDS: haloperidol 5 mg Tablet PO (16:03)
[2022-03-09] MEDS: warfarin 6 mg Tablet 12 MG PO (16:03)
--- NOTE | 2022-03-09 18:53 | PC.NURSE ---
PRN MEDICATIONS VERY AGITATED AND ANGRY WHEN AWAKE. PT RECEIVED ZYDIS AND HALDOL ORDERED WITH EFFECTIVE RESULTS
[2022-03-09 20:53] VITALS: BP 137/94; PULSE 97; RESP 18; TEMP 36.7; O2SAT 97
[2022-03-09] MEDS: mirtazapine 30 mg Tablet PO (21:03)
[2022-03-09] MEDS: carvedilol 3.125 mg Tablet PO (21:03)
[2022-03-10 06:00] VITALS: BP 119/79; PULSE 72; RESP 18; TEMP 36.6; O2SAT 99
[2022-03-10] MEDS: lurasidone 20 mg Tablet 40 MG PO (10:42)
[2022-03-10] MEDS: carvedilol 3.125 mg Tablet PO ×2 (10:42→20:11)
[2022-03-10] MEDS: OXcarbazepine 300 mg Tablet 450 MG PO ×2 (10:42→20:10)
[2022-03-10] MEDS: lisinopril 5 mg Tablet PO (10:43)
[2022-03-10 10:57] LABS: INR 0.96 (0.8-1.2)
--- NOTE | 2022-03-10 11:29 | P.NPUPN_ITS ---
Subjective NPU Subjective: He says that he continues to be depressed and suicidal. He says that he does not hear voices anymore. He has no place to go and no support outside of the hospital. He wants to go to a treatment program but the program that he was at in [place] was a [facility] program and it is 1 year long. They do not like to take mental health medications there. He was there for 3 weeks and could not tolerate it and left. He says they will not let him come back until he has been gone for 1 month and that would be March 24. He would prefer going to a different place that would let him in sooner and would let him take his medications. He does have Medicaid now and could go to some places that wer e not [facility]-based. Mental Status Exam MSE Comments: This is a 31-year-old obese male who appears approximately his stated age and is in no acute distress. He is fairly groomed and dressed in hospital scrubs. He is pleasant and cooperative with the evaluation. psychomotor activity mildly decreased Speech is at a regular rate and rhythm, normal volume, good articulation, not pressured. There is no spontaneous speech but he only answered questions. Alert, oriented X3 Attention and concentration appear to be somewhat reduced because of his sedation. Memory is intact Mood is depressed. Affect mildly dysphoric. Thought process is logical and goal-directed. Thought content: He denies auditory and visual hallucinations today No delusions or paranoia are noted. He says that he has continued to have suicidal ideation. He denies homicidal ideation. Fund of knowledge is average. Insight and judgment appear to be poor. Impulse control is poor. Cognition: Patient Appearance: Appropriate Ability to Follow Directions: Good Patient Orientation (long list): Person, Place, Time, Birthday, Month and Year Comprehension Ability: No Impairment Hallucination Type: None Delusion Description: Not Present Thought Process: Appropriate Affect: Affect Description: Calm Behavior: Patient Behavior: Cooperative Speech Pattern: Clear Vitals/I&O/Wt Last Vital Signs Temp 97.9 F 03/10/22 06:00 Pulse 72 03/10/22 06:00 Resp 18 03/10/22 06:00 BP 119/79 03/10/22 06:00 Pulse Ox 99 03/10/22 06:00 Weight last 48 hrs Weight 104.383 kg A&P Assessment and plan (1) Methamphetamine abuse: Status: Acute (2) Bipolar 1 disorder, manic, moderate: Status: Acute (3) Depression with suicidal ideation: Status: Acute Plan This is a 31-year-old male who reports worsening psychosis and depression after running out of medications 3 weeks ago. Plan: 1. Will resume medications that he was taking when he was released in the last admission. 2. Continue every 15 minute checks for safety. 3. Encourage individual, group and milieu therapies. 4. Encourage sober living treatment after discharge at the highest level of care to which he is willing to commit. 5. We will monitor for safety for himself in the community prior to discharge. Involuntary Hold Information 96 Hour Hold: 96 Hour Involuntary Admission: No Attestations NPU Medical Necessity Statement*: Inpatient hospitalization is medically necessary and the clinically appropriate intervention at this time. We will initiate medications and make changes as indicated. Coding Level of Care Code Acute Medical Transcription Radiology for Alicia Harris Diagnoses Methamphetamine abuse F15.10 Bipolar 1 disorder, manic, moderate F31.12 Depression with suicidal ideation F32.A; R45.851
[2022-03-10 14:00] VITALS: BP 124/79; PULSE 79; RESP 18; TEMP 36.6; O2SAT 98
[2022-03-10] MEDS: warfarin 6 mg Tablet 12 MG PO (14:49)
[2022-03-10] MEDS: hyDROXYzine 25 mg Capsule 50 MG PO ×2 (16:01→20:11)
--- NOTE | 2022-03-10 16:01 | PC.NURSE ---
PRN VISTARIL 50 MG GIVEN PO PER PT C/O STATED ANXIETY
[2022-03-10] MEDS: OLANZapine 5 mg ODT PO (16:40)
[2022-03-10 19:36] VITALS: BP 127/87; PULSE 86; RESP 20; TEMP 36.9; O2SAT 98
[2022-03-10] MEDS: mirtazapine 30 mg Tablet PO (20:11)
[2022-03-11 06:00] VITALS: BP 126/90; PULSE 68; RESP 17; TEMP 36.9; O2SAT 98
[2022-03-11 07:17] LABS: INR 1.05 (0.8-1.2)
--- NOTE | 2022-03-11 07:38 | PC.NURSE ---
shift assessment pt denies all during shift assessment, went to eat breakfast, then came back to nurses station saying he was suicidal but did contract for safety while on unit. said it's the same plan, I want to jump in front of traffic
[2022-03-11] MEDS: carvedilol 3.125 mg Tablet PO ×2 (09:27→20:37)
[2022-03-11] MEDS: lisinopril 5 mg Tablet PO (09:27)
[2022-03-11] MEDS: OXcarbazepine 300 mg Tablet 450 MG PO ×2 (09:27→20:37)
[2022-03-11] MEDS: lurasidone 20 mg Tablet 40 MG PO (09:27)
[2022-03-11] MEDS: hyDROXYzine 25 mg Capsule 50 MG PO (12:37)
[2022-03-11] MEDS: nicotine 2 mg Gum BUCCAL (12:37)
[2022-03-11] MEDS: warfarin 6 mg Tablet 12 MG PO (12:37)
--- NOTE | 2022-03-11 12:39 | PC.NURSE ---
prn VISTARIL 50 MG GIVEN PO PER PT C/O STATED ANXIETY. NO OUTWARD S/S OF ANXIETY NOTED, PT PREVIOUSLY ASLEEP IN BED IN ROOM
[2022-03-11] MEDS: OLANZapine 5 mg ODT PO ×2 (13:47→20:38)
[2022-03-11 14:00] VITALS: BP 110/63; PULSE 76; RESP 18; TEMP 36.6; O2SAT 99
--- NOTE | 2022-03-11 14:06 | PC.NURSE ---
PRN ZYPREXA ZYDIS 5 MG GIVEN PO PER PT C/O FURTHER ANXIETY/AGITATION. PT SAID MY ANXIETY IS JUST UP TO HERE WHILE HOLDING HIS HAND UP ABOVE HIS HEAD.
--- NOTE | 2022-03-11 14:28 | P.NPUPN_ITS ---
Subjective NPU Subjective: He said that he is really anxious and his head is pounding. He is upset because he called some rehab places and they would not take him. One place ask for $17,000. He did not know that Wilmar, the social service technician, had an idea that he was going to contact. That seemed to calm him down somewhat. He agreed to try some propranolol to see if that would help his anxiety and head pounding. Mental Status Exam MSE Comments: This is a 31-year-old obese male who appears approximately his stated age and is in no acute distress. He is fairly groomed and dressed in hospital scrubs but his shirt was off He is cooperative with the evaluation. psychomotor activity mildly decreased Speech is at a regular rate and rhythm, normal volume, good articulation, not pressured. There is no spontaneous speech but he only answered questions. Alert, oriented X3 Attention and concentration appear to be somewhat reduced because of his sedation. Memory is intact Mood is depressed. Affect mildly dysphoric. Thought process is logical and goal-directed. Thought content: He denies auditory and visual hallucinations today No delusions or paranoia are noted. He says that he has continued to have suicidal ideation. He denies homicidal ideation. Fund of knowledge is average. Insight and judgment appear to be poor. Impulse control is poor. Cognition: Patient Appearance: Appropriate Ability to Follow Directions: Good Patient Orientation (long list): Person, Place, Time, Name and Age Comprehension Ability: No Impairment Hallucination Type: None Delusion Description: Not Present Thought Process: Appropriate Affect: Affect Description: Flat Behavior: Patient Behavior: Cooperative and Withdrawn Speech Pattern: Clear Vitals/I&O/Wt Last Vital Signs Temp 98.4 F 03/11/22 06:00 Pulse 68 03/11/22 06:00 Resp 17 03/11/22 06:00 BP 126/90 03/11/22 06:00 Pulse Ox 98 03/11/22 06:00 A&P Assessment and plan (1) Methamphetamine abuse: Status: Acute (2) Bipolar 1 disorder, manic, moderate: Status: Acute (3) Depression with suicidal ideation: Status: Acute Plan This is a 31-year-old male who reports worsening psychosis and depression after running out of medications 3 weeks ago. Plan: 1. Will resume medications that he was taking when he was released in the last admission. Add propranolol 20 mg 3 times a day as needed 2. Continue every 15 minute checks for safety. 3. Encourage individual, group and milieu therapies. 4. Encourage sober living treatment after discharge at the highest level of care to which he is willing to commit. 5. We will monitor for safety for himself in the community prior to discharge. Involuntary Hold Information 96 Hour Hold: 96 Hour Involuntary Admission: No Attestations NPU Medical Necessity Statement*: Inpatient hospitalization is medically necessary and the clinically appropriate intervention at this time. We will initiate medications and make changes as indicated. Coding Level of Care Code Acute Snowboarding Instructor for g Fwd Diagnoses Methamphetamine abuse F15.10 Bipolar 1 disorder, manic, moderate F31.12 Depression with suicidal ideation F32.A; R47.858
[2022-03-11] MEDS: propranolol 20 mg Tablet PO (14:44)
--- NOTE | 2022-03-11 14:45 | PC.NURSE ---
Patient at nurses station with v/o increased anxiety. Patient given propanolol 20 mg po for this.
[2022-03-11] MEDS: haloperidol 5 mg Tablet PO (16:03)
--- NOTE | 2022-03-11 16:06 | PC.NURSE ---
Patient at nurses station voicing c/o increased anxiety. Anxious affect noted. Patient has had prn medications for this this afternoon without any relief from anxiety. Given Haldol 5 mg po for this.
[2022-03-11 19:50] VITALS: BP 114/73; PULSE 75; RESP 14; TEMP 36.5; O2SAT 98
[2022-03-11] MEDS: mirtazapine 30 mg Tablet PO (20:37)
[2022-03-12] VITALS (7 sets, daily range): BP systolic 102–137; BP diastolic 66–92; PULSE 63–81; RESP 17–20; TEMP 36.6–37.1; O2SAT 98–100
--- NOTE | 2022-03-12 08:44 | PC.NURSE ---
ANXIETY NOTED DURING ASSESSMENT. MED NURSE NOTIFIED TO GIVE ANXIETY MEDICATIONS. CONTINUES TO ENDORESE SUICIDAL THOUGHTS. PT STATES, I STILL WANT TO JUMP OUT IN FRONT OF A TRUCK. PT WAS CONTRACTED FOR SAFETY. PT STATES HE HAS NO PLANS WHILE ON UNIT. DENIES HI AND AVH AT THIS TIME.
[2022-03-12] MEDS: propranolol 20 mg Tablet PO (10:06)
[2022-03-12] MEDS: carvedilol 3.125 mg Tablet PO ×2 (10:06→20:06)
[2022-03-12] MEDS: lurasidone 20 mg Tablet 40 MG PO (10:06)
[2022-03-12] MEDS: lisinopril 5 mg Tablet PO (10:07)
[2022-03-12] MEDS: OXcarbazepine 300 mg Tablet 450 MG PO ×2 (10:07→20:05)
[2022-03-12] MEDS: OLANZapine 5 mg ODT PO (10:07)
--- NOTE | 2022-03-12 10:13 | W.PM.NPUPNS ---
Subjective NPU Subjective: He says he has some better but still has a lot of anxiety. The Remeron was not working as well for his sleep as it was. He did not know that he had trazodone available and will try that tonight. He agreed to add some Lexapro to his Remeron as an antidepressant to help better with anxiety. The propranolol does not help much. The Haldol is what helps more than anything. Mental Status Exam MSE Comments: This is a 31-year-old obese male who appears approximately his stated age and is in no acute distress. He is fairly groomed and dressed in hospital scrubs. He is cooperative with the evaluation. psychomotor activity mildly decreased Speech is at a regular rate and rhythm, normal volume, good articulation, not pressured. There is no spontaneous speech but he only answered questions. Alert, oriented X3 Attention and concentration appear to be somewhat reduced because of his sedation. Memory is intact Mood is depressed. Affect mildly dysphoric. Thought process is logical and goal-directed. Thought content: He denies auditory and visual hallucinations today No delusions or paranoia are noted. He says that he has continued to have suicidal ideation. He denies homicidal ideation. Fund of knowledge is average. Insight and judgment appear to be poor. Impulse control is poor. Cognition: Patient Appearance: Disheveled/Poor Hygiene Ability to Follow Directions: Good Patient Orientation (long list): Person, Place, Time, Name and Age Comprehension Ability: No Impairment Hallucination Type: None Delusion Description: Not Present Thought Process: Disorganized Affect: Affect Description: Anxious Behavior: Patient Behavior: Cooperative and Withdrawn Speech Pattern: Appropriate and Clear Vitals/I&O/Wt Last Vital Signs Temp 98 F 03/12/22 06:00 Pulse 63 03/12/22 06:00 Resp 17 03/12/22 06:00 BP 137/92 03/12/22 06:00 Pulse Ox 100 03/12/22 06:00 A&P Assessment and plan (1) Methamphetamine abuse: Status: Acute (2) Bipolar 1 disorder, manic, moderate: Status: Acute (3) Depression with suicidal ideation: Status: Acute Plan This is a 31-year-old male who reports worsening psychosis and depression after running out of medications 3 weeks ago. Plan: 1. Will resume medications that he was taking when he was released in the last admission. Add propranolol 20 mg 3 times a day as needed. Add Lexapro 10 mg daily 2. Continue every 15 minute checks for safety. 3. Encourage individual, group and milieu therapies. 4. Encourage sober living treatment after discharge at the highest level of care to which he is willing to commit. 5. We will monitor for safety for himself in the community prior to discharge. Involuntary Hold Information 96 Hour Hold: 96 Hour Involuntary Admission: No Attestations NPU Medical Necessity Statement*: Inpatient hospitalization is medically necessary and the clinically appropriate intervention at this time. We will initiate medications and make changes as indicated. Coding Level of Care Code Acute Pump Servicer for g Fwd Diagnoses Methamphetamine abuse F15.10 Bipolar 1 disorder, manic, moderate F31.12 Depression with suicidal ideation F32.A; R40.853
[2022-03-12] MEDS: escitalopram 10 mg Tablet PO (11:23)
[2022-03-12] MEDS: hyDROXYzine 25 mg Capsule 50 MG PO (12:05)
[2022-03-12] MEDS: warfarin 6 mg Tablet 12 MG PO (15:04)
[2022-03-12] MEDS: acetaminophen 325 mg Tablet 650 MG PO (15:47)
--- NOTE | 2022-03-12 15:47 | PC.NURSE ---
WITNESSED FALL PT AT NURSES STATION FILLING OUT MENU AND FELL TO GROUND HITTING BACK OF HIS HEAD. VS FOLLOWS , HR 81, RR 20 SPO2 96% RA AND BLOOD GLUCOSE WAS 116. PT APPEARED CLAMMY WITH ASHEN COLOR TO SKIN. DR. HERRERA WAS NOTIFIED AND NEW ORDERS RECEIVED TO COLLECT CBC AND BMP STAT. NEURO CHECKS ADDED UNDER NURSING INTERVENTIONS. PT SITTING ON BENCH WITH STAFF AND COLOR DID COME BACK. WALKED WITH PT TO ROOM AND PT IS STEADY. PT REPORTS THIS HAPPENS SOMETIMES THE LAST TIME WAS A YEAR AND A HALF AGO. ORDERS PLACED. PT EDUCATED ON ALL NEW ORDERS AND NEURO CHECKS. ALL QUESTIONS ANSWERED AND SUPPORT VOICED. NEUROS WNL FOR PT.
[2022-03-12 15:48] LABS: Glucose Point of Care 116 mg/dL (70-110)
[2022-03-12 17:06] LABS: Basophils # 0.1 10^3/uL (0.0-0.1); Basophils % 0.7 %; Eosinophils # 0.1 10^3/uL (0.0-0.8); Eosinophils % 1.4 %; Hemoglobin 14.2 g/dL (11.7-16.6); Lymphocytes # 2.7 10^3/uL (0.8-4.8); Lymphocytes % 36.9 %; Mean Corpuscular Hemoglobin 30.2 pg (28.0-34.0); Mean Corpuscular Volume 91.5 fl (80-94); Mean Platelet Volume 11.6 fL (7.4-10.4); Monocytes # 0.8 10^3/uL (0.2-0.9); Monocytes % 10.6 %; Neutrophils # 3.63 10^3/uL (1.8-7.7); Neutrophils % 50.1 %; Nucleated Red Blood Cells % 0 %; Platelet Count 252 10^3/cmm (130-400); Red Cell Distribution Width 13.4 % (12.1-15.1); White Blood Count 7.2 10^3/uL (4.0-10.0)
[2022-03-12 17:35] LABS: Anion Gap 15.3 (5-19); Blood Urea Nitrogen 18 mg/dL (6-20); Carbon Dioxide 23 mmol/L (22-29); Chloride 102 mmol/L (98-107); Glomerular Filtration Rate 99.8 mL/min (90-130); Glucose 93 mg/dL (65-115); Osmolality Calculated 284 mOsm/kg (285-295); Potassium 4.3 mmol/L (3.5-5.1); Sodium 136 mmol/L (136-145)
[2022-03-12] MEDS: mirtazapine 30 mg Tablet PO (20:05)
[2022-03-12] MEDS: trazodone 50 mg Tablet PO (20:09)
[2022-03-13] VITALS (8 sets, daily range): BP systolic 95–122; BP diastolic 65–82; PULSE 65–83; RESP 17–20; TEMP 36.4–36.9; O2SAT 96–99
[2022-03-13] MEDS: escitalopram 10 mg Tablet PO (09:53)
[2022-03-13] MEDS: lisinopril 5 mg Tablet PO (09:53)
[2022-03-13] MEDS: OXcarbazepine 300 mg Tablet 450 MG PO ×2 (09:53→20:26)
[2022-03-13] MEDS: carvedilol 3.125 mg Tablet PO ×2 (09:53→20:26)
[2022-03-13] MEDS: nicotine 2 mg Gum BUCCAL (09:53)
[2022-03-13] MEDS: lurasidone 20 mg Tablet 40 MG PO (09:53)
[2022-03-13] MEDS: OLANZapine 5 mg ODT PO ×2 (12:15→15:45)
--- NOTE | 2022-03-13 12:49 | P.NPUPN_ITS ---
Subjective NPU Subjective: He says that he is doing better. He feels like he is ready to go. He's anxiety continues to be elevated but he thinks part of it is because he is trapped here. [facility] even though they will not let him take the Remeron. He says that even without the Remeron he still slept well when he was there. They were also taking him to a health clinic where he was having his Coumadin monitored. He says that he is willing to go to the homeless residential to wait until they have a bed for him on the . He needed us to find out his court dates. Mental Status Exam MSE Comments: This is a 31-year-old obese male who appears appro ximately his stated age and is in no acute distress. He is fairly groomed and dressed in hospital scrubs. He is cooperative with the evaluation. psychomotor activity mildly decreased Speech is at a regular rate and rhythm, normal volume, good articulation, not pressured. There is no spontaneous speech but he only answered questions. Alert, oriented X3 Attention and concentration appear to be somewhat reduced because of his sedation. Memory is intact Mood is depressed. Affect mildly dysphoric. Thought process is logical and goal-directed. Thought content: He denies auditory and visual hallucinations today No delusions or paranoia are noted. He denies suicidal ideation. He denies homi cidal ideation. Fund of knowledge is average. Insight and judgment appear to be poor. Impulse control is poor. Cognition: Patient Appearance: Disheveled/Poor Hygiene Ability to Follow Directions: Good Patient Orientation (long list): Person, Place, Time, Name and Age Comprehension Ability: No Impairment Hallucination Type: None Delusion Description: Not Present Thought Process: Disorganized Affect: Affect Description: Appropriate Behavior: Patient Behavior: Appropriate and Cooperative Speech Pattern: Appropriate and Clear Vitals/I&O/Wt Last Vital Signs Temp 97.6 F 03/13/22 12:00 Pulse 65 03/13/22 12:00 Resp 17 03/13/22 12:00 BP 122/82 03/13/22 12:00 Pulse Ox 99 03/13/22 06:00 Data NPU : 03/12/22 16:47 03/12/22 16:47 A&P Assessment and plan (1) Methamphetamine abuse: Status: Acute (2) Bipolar 1 disorder, manic, moderate: Status: Acute (3) Depression with suicidal ideation: Status: Acute Plan This is a 31-year-old male who reports worsening psychosis and depression after running out of medications 3 weeks ago. Plan: 1. Will resume medications that he was taking when he was released in the last admission. Add propranolol 20 mg 3 times a day as needed. Add Lexapro 10 mg daily 2. Continue every 15 minute checks for safety. 3. Encourage individual, group and milieu therapies. 4. Encourage sober living treatment after discharge at the highest level of care to which he is willing to commit. 5. We will monitor for safety for himself in the community prior to discharge. Involuntary Hold Information 96 Hour Hold: 96 Hour Involuntary Admission: No Attestations NPU Medical Necessity Statement*: Inpatient hospitalization is medically necessary and the clinically appropriate intervention at this time. We will initiate medications and make changes as indicated. Coding Level of Care Code Acute Director Business Development for Alicia Harris Diagnoses Methamphetamine abuse F15.10 Bipolar 1 disorder, manic, moderate F31.12 Depression with suicidal ideation F32.A; R45.853
[2022-03-13] MEDS: warfarin 5 mg Tablet 15 MG PO (14:35)
[2022-03-13] MEDS: mirtazapine 30 mg Tablet PO (20:26)
[2022-03-14 06:00] VITALS: BP 128/83; PULSE 75; RESP 18; TEMP 36.6; O2SAT 98
[2022-03-14] MEDS: lurasidone 20 mg Tablet 40 MG PO (08:44)
[2022-03-14] MEDS: carvedilol 3.125 mg Tablet PO (08:45)
[2022-03-14] MEDS: OXcarbazepine 300 mg Tablet 450 MG PO (08:45)
[2022-03-14] MEDS: nicotine 2 mg Gum BUCCAL (08:45)
[2022-03-14] MEDS: lisinopril 5 mg Tablet PO (08:45)
[2022-03-14] MEDS: escitalopram 10 mg Tablet PO (08:45)
--- NOTE | 2022-03-14 11:11 | W.PM.NPUDCS ---
Diagnoses at Discharge Discharge Diagnosis (1) Methamphetamine abuse: Status: Acute (2) Bipolar 1 disorder, manic, moderate: Status: Acute (3) Depression with suicidal ideation: Status: Acute Reason for Visit Reason for Visit: SI Brief History: History of Present Illness Santosh Resendez is a 31 year old male admitted through an outside emergency department with the following report: Presenting problem: The patient presented to the emergency department via private vehicle with a chief complaint of suicidal thoughts with a plan.? The patient reported that to the triage nurse that he has been without medication for the past 3 weeks because he could not afford them.? He appeared paranoid in triage.? Per patient I am in deep depression right now and I have been having a lot of anxiety lately.? I ain't got no job or a place to live.? I ain't got no family or nothing right now.? I ain't been able to afford my medication.? I really been thinking about going on the highway and jumping in front of a diesel.? Patient is moving throughout the assessment and was looking around the room under the stretcher and [place] in the room.? He was cooperative and friendly but paranoid and moving nonstop during the assessment.? He admits to auditory or visual hallucinations. He was admitted to the neuropsychiatry unit for definitive treatment of these issues.? He said that he was not able to afford his medications when his 1 month supply ran out after his last admission.? He was discharged on Latuda 40 mg, Remeron 30 mg, Trileptal 450 mg twice daily, lisinopril 5 mg every morning Coreg 3.125 mg twice daily and warfarin 10 mg daily.? He said that he was doing relatively well with those doses of medications.? He did significantly worse when he ran out of them.? He says that he and his father went into rehab together in early February when he was still taking the medications.? He said it was too much for him and he was very anxious around the other people and he had to leave.? He would like to go back there when he leaves here.? His father is still there.? He has been having auditory and visual hallucinations.? He has been paranoid.? He has had suicidal ideations and thinking about running out in in traffic so that he can be killed.? He has been using methamphetamine and has not slept for the last 6 days. Hospital Course Hospital Course He slowly acclimated to the individual, group and milieu therapies provided. He was restarted on his previous medications. he tolerated these doses and showed steady improvement during his stay. He was able to contract for safety outside hospital prior to discharge. During the hospitalization, patient had routine laboratory studies which were within normal limits except for few outliers. Additionally there was a general medical evaluation which was also within normal limits and revealed no new acute processes. Discharge Summary: At the time of discharge, lethality was denied and psychosis was resolving. He was discharged to a mission until he can get back in to the rehab facility where he was previously. He understands that he would not be able to take all of his medications there but that is what he wanted. He is confident that he can do it. Mood and anxiety were well managed. Patient endorsed a plan to follow-up with the aftercare recommendations of the treatment team. Patient was evaluated and deemed to be absent credible lethality, and had achieved the maximum benefit from an inpatient hospitalization, so was discharged. Involuntary Hold Information 96 Hour Hold: 96 Hour Involuntary Admission: No Mental Status Exam MSE Comments: This is a 31-year-old obese male who appears approximately his stated age and is in no acute distress.? He is fairly groomed and dressed in hospital scrubs.? He is cooperative with the evaluation.? psychomotor activity mildly decreased Speech is at a regular rate and rhythm, normal volume, good articulation, not pressured.? There is no spontaneous speech but he only answered questions. Alert, oriented X3 Attention and concentration appear to be somewhat reduced because of his sedation. Memory is intact Mood is mildly depressed.? Affect mildly dysphoric. Thought process is logical and goal-directed. Thought content: He denies auditory and visual hallucinations today? No delusions or paranoia are noted.? He denies suicidal ideation.? He denies homicidal ideation.? Fund of knowledge is average. Insight and judgment appear to be poor. Impulse control is poor. Cognition: Patient Appearance: Disheveled/Poor Hygiene Ability to Follow Directions: Good Patient Orientation (long list): Person, Place, Time, Name and Age Comprehension Ability: No Impairment Hallucination Type: None Delusion Description: Not Present Thought Process: Appropriate Affect: Affect Description: Calm Behavior: Patient Behavior: Appropriate Speech Pattern: Appropriate and Clear Discharge Data Studies Completed and Pending: Laboratory Results WBC 7.2 10^3/uL (4.0- 10.0) 03/12/22 16:47 RBC 4.70 10^6/uL (4.1 -5.3) 03/12/22 16:47 Hgb 14.2 g/dL (11.7-1 6.6) 03/12/22 16:47 Hct 43.0 % (42.0-52.0 ) 03/12/22 16:47 MCV 91.5 fl (80-94) 03/12/22 16:47 MCH 30.2 pg (28.0-34. 0) 03/12/22 16:47 MCHC 33.0 g/dL (30.0-3 6.0) 03/12/22 16:47 RDW 13.4 % (12.1-15.1 ) 03/12/22 16:47 Plt Count 252 10^3/cmm (130 -400) 03/12/22 16:47 MPV 11.6 fL (7.4-10.4 ) H 03/12/22 16:47 Neut % (Auto) 50.1 % 03/12/22 16:47 Lymph % (Auto) 36.9 % 03/12/22 16:47 [place] % (Auto) 10.6 % 03/12/22 16:47 Eos % (Auto) 1.4 % 03/12/22 16:47 Baso % (Auto) 0.7 % 03/12/22 16:47 Neut # (Auto) 3.63 10^3/uL (1.8 -7.7) 03/12/22 16:47 Lymph # (Auto) 2.7 10^3/uL (0.8- 4.8) 03/12/22 16:47 [place] # (Auto) 0.8 10^3/uL (0.2- 0.9) 03/12/22 16:47 Eos # (Auto) 0.1 10^3/uL (0.0- 0.8) 03/12/22 16:47 Baso # (Auto) 0.1 10^3/uL (0.0- 0.1) 03/12/22 16:47 Nucleated RBC % (a uto) 0 % 03/12/22 16:47 Nucleated RBCs # 0.0 /100WBC 03/12/22 16:47 PT 14.10 SECONDS (12 .1-14.9) 03/11/22 06:52 INR 1.05 (0.8-1.2) 03/11/22 06:52 Sodium 136 mmol/L (136-1 45) 03/12/22 16:47 Potassium 4.3 mmol/L (3.5-5 .1) 03/12/22 16:47 Chloride 102 mmol/L (98-10 7) 03/12/22 16:47 Carbon Dioxide 23 mmol/L (22-29) 03/12/22 16:47 Anion Gap 15.3 (5-19) 03/12/22 16:47 BUN 18 mg/dL (6-20) 03/12/22 16:47 Creatinine 0.9 mg/dL (0.7-1. 2) 03/12/22 16:47 GFR Calculation 99.8 mL/min (90-1 30) 03/12/22 16:47 Glucose 93 mg/dL (65-115) 03/12/22 16:47 POC Glucose 116 mg/dL (70-110 ) H 03/12/22 15:42 Calculated Osmolal ity 284 mOsm/kg (285- 295) L 03/12/22 16:47 Calcium 9.0 mg/dL (8.5-10 .5) 03/12/22 16:47 Vitals: Last Vital Signs Temp 97.9 F 03/14/22 06:00 Pulse 75 03/14/22 06:00 Resp 18 03/14/22 06:00 BP 128/83 03/14/22 06:00 Pulse Ox 98 03/14/22 06:00 Discharge Plan Discharge Patient Disposition: Home Condition: Stable Prescriptions: New warfarin 5 mg Tablet 15 mg PO 1400 14 Days Qty: 42 0RF Continued carvedilol [Coreg] 3.125 mg Tablet 3.125 mg PO BID 30 Days Qty: 60 1RF Rx Instructions: must administer with a meal/food lisinopril 5 mg Tablet 5 mg PO DAILY 30 Days Qty: 30 1RF Trileptal 150 mg Tablet 150 mg PO BID 30 Days Qty: 60 1RF Trileptal 300 mg Tablet 300 mg PO BID 30 Days Qty: 60 1RF mirtazapine 30 mg Tablet 30 mg PO BEDTIME 30 Days Qty: 30 1RF Changed Latuda 20 mg tablet 40 mg PO DAILY 30 Days Qty: 60 1RF Discontinued warfarin 10 mg tablet 12 mg PO DAILY 0RF Discharge Orders: Discharge Order (Routine); Ordered 03/14/22 Ordered By: Rogers Thomas Referrals: [facility] [Other] (Walk in status Thursday thru Thursday 8am to 4pm.) [facility] [Other] [facility] [Other] Discharge Diet: Regular Discharge Activity: Resume usual activity Patient Instructions: Opioid Safety Discharge Attestations NPU Time Spent in Discharge Care*: less than 30 min Specific Discharge Activities: Specific discharge activities: educating patient, discussing with outpatient case manager/social workers/dc planners, documenting/other paperwork and evaluating patient/reviewing data Coding Level of Care Code Acute [facility] [place] note Diagnoses Methamphetamine abuse F15.10 Bipolar 1 disorder, manic, moderate F31.12 Depression with suicidal ideation F32.A; R45.851
[2022-03-14 11:19] VITALS: BP 128/83; PULSE 75; RESP 18; TEMP 36.6; O2SAT 98
== END 2022-03-14 11:55 | disposition home or self-care (01) | DRG 885 ==
PROVIDERS: Admitting Provider Psychiatry & Neurology Psychiatry; Visit Provider Psychiatry & Neurology Psychiatry
DX: F31.9 Bipolar disorder, unspecified (principal); R45.851 Suicidal ideations; F15.10 Other stimulant abuse, uncomplicated; Z63.0 Problems in relationship with spouse or partner; Z59.00 Homelessness unspecified
CPT/HCPCS: 36415; 36416; 80048; 82962; 85025; 85610; 97150; 97165

== ENCOUNTER 2023-01-13 10:37 | Inpatient (IN) | payer MEDICAID, SELFPAY ==
[2023-01-13 10:47] VITALS: BMI 34.8
[2023-01-13 10:49] VITALS: BP 123/80; PULSE 81; RESP 16; TEMP 36.8; O2SAT 98
[2023-01-13 14:00] VITALS: BP 121/76; PULSE 74; RESP 16; TEMP 36.8; O2SAT 98
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
[2023-01-13 19:43] VITALS: BP 118/74; PULSE 96; RESP 16; TEMP 36.7; O2SAT 97
[2023-01-13] MEDS: carvedilol 3.125 mg Tablet PO (20:03)
[2023-01-14 06:00] VITALS: BP 120/76; PULSE 71; RESP 18; TEMP 36.3; O2SAT 99
[2023-01-14] MEDS: aspirin 325 mg EC Tablet PO (08:23)
[2023-01-14] MEDS: lisinopril 5 mg Tablet PO (08:23)
[2023-01-14] MEDS: buPROPion XL (24 HR) 150 mg Tablet PO (08:23)
[2023-01-14] MEDS: carvedilol 3.125 mg Tablet PO ×2 (08:23→21:16)
[2023-01-14] MEDS: sertraline 50 mg Tablet PO (08:23)
[2023-01-14 14:00] VITALS: BP 111/74; PULSE 86; RESP 18; TEMP 36.4; O2SAT 96
--- NOTE | 2023-01-14 17:32 | W.PM.NPUPNS ---
Subjective NPU Subjective: Patient is a 32-year-old white male with a past history of substance use including methamphetamine use who reports that he continues to feel suicidal. He had reported that his depression had been significantly worse. He states that he needed to have his medications adjusted. He had continued to isolate himself on the milieu and reported feeling anxious. He had reported significant sleep continuity disruption. He had reported that he had been staying in a residential and had been able to maintain sobriety there in a specific supportive living facility. He had denied any auditory or visual hallucinations currently. Mental Status Exam MSE Comments: Is a disheveled white male who appeared his stated age with fair eye contact. He appeared in mild to moderate distress. He was more compliant on interview today. He was alert and oriented x3 today. There was no evidence of any abnormal involuntary motor movements tics or tremors appreciated. His mood was described as depressed. His affect was mood congruent and dysphoric. He did not appear to be responding to internal stimuli. He had acknowledged suicidal ideation with a plan to hang himself. He denied homicidal ideation. There was no overt paranoia noted today his attention span appeared variable. His insight and judgment are poor. His impulse control appeared limited at best. His speech was normal in regards to volume but limited in regards to productivity with diminished rate. Vitals/I&O/Wt Last Vital Signs Temp 97.5 F L 01/14/23 14:00 Pulse 86 01/14/23 14:00 Resp 18 01/14/23 14:00 BP 111/74 01/14/23 14:00 Pulse Ox 96 01/14/23 14:00 O2 Del Method Room Air 01/14/23 06:00 Weight last 48 hrs Weight 113.398 kg A&P Assessment and plan (1) Methamphetamine abuse: (2) Suicidal ideation: (3) Unspecified episodic mood disorder: Plan The patient is a 32-year-old white male with an unspecified mood disorder admitted with suicidal ideation with a plan with a past history of polysubstance abuse. 1.? Engage patient in individual ,milieu, and group therapy 2. We will attempt to gather collateral information from previous providers 3.? TO-15 minute checks on the unit 4. Recommend sober living treatment at the highest level of care to which the patient is willing to commit. 5. Increase Wellbutrin xl to 300mg in am, continue buspar 15mg bid, increase zoloft to 100mg in am. Involuntary Hold Information 96 Hour Hold: 96 Hour Involuntary Admission: No Attestations NPU Medical Necessity Statement*: Inpatient hospitalization is medically necessary and clinically appropriate decision at this time. We will monitor and initiate medications while making changes as indicated. His likely length of stay of 5 to 7 days. Coding Level of Care Code Acute Code for g Fwd Diagnoses Methamphetamine abuse F15.10 Suicidal ideation R45.851 Unspecified episodic mood disorder F39
[2023-01-14 18:26] LABS: Bilirubin Urine Neg (Negative); Blood Urine Neg (Negative); Glucose Urine UA Norm (Normal); Ketones Urine Negative (Negative); Leukocyte Esterase Urine Negative (Negative); Nitrate Urine Negative (Negative); Protein Urine Neg (Negative); Urine Appearance Clear (CLEAR); Urine Color Yellow (Yellow); Urobilinogen Urine Neg (Negative); pH Urine 6 (5-7)
[2023-01-14 18:36] LABS: RBC Urine 0-4 /hpf (0-2); Squamous Epithelial Cell Urine 0-4 /hpf (0-5)
[2023-01-14 18:37] LABS: Add Urine Culture? No
[2023-01-14] MEDS: trazodone 50 mg Tablet PO (21:16)
[2023-01-14 22:00] VITALS: BP 108/69; PULSE 94; RESP 17; TEMP 36.7; O2SAT 95
--- NOTE | 2023-01-15 00:44 | PC.NURSE ---
notified of pt UA and burning on urination and bp 108/69 and stated ok to given Coreg. No other orders received. stated he will assess pt next day for medical consult.
[2023-01-15 06:00] VITALS: BP 129/85; PULSE 89; RESP 16; TEMP 36.9; O2SAT 98
[2023-01-15] MEDS: sertraline 100 mg Tablet PO (08:14)
[2023-01-15] MEDS: aspirin 325 mg EC Tablet PO (08:14)
[2023-01-15] MEDS: lisinopril 5 mg Tablet PO (08:14)
[2023-01-15] MEDS: buPROPion XL (24 HR) 300 mg Tablet PO (08:14)
[2023-01-15] MEDS: carvedilol 3.125 mg Tablet PO (08:14)
[2023-01-15] MEDS: nicotine 2 mg Gum BUCCAL ×2 (08:17→13:19)
[2023-01-15] MEDS: BuSPIRONE 10 mg Tablet PO (08:38)
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
[2023-01-15 13:44] VITALS: BP 129/85; PULSE 89; RESP 16; TEMP 36.9; O2SAT 98
== END 2023-01-15 15:18 | disposition home or self-care (01) | DRG 885 ==
PROVIDERS: Psychiatry & Neurology Psychiatry; Admitting Provider Psychiatry & Neurology Psychiatry; Visit Provider Psychiatry & Neurology Psychiatry
DX: F39 Unspecified mood [affective] disorder (principal); R45.851 Suicidal ideations; F15.10 Other stimulant abuse, uncomplicated; Z79.899 Other long term (current) drug therapy; Z95.2 Presence of prosthetic heart valve; Z62.812 Personal history of neglect in childhood; Z62.811 Personal history of psychological abuse in childhood
CPT/HCPCS: 81001; 87491; 87591; 97165